=== PATIENT | male | born 1950 ===

== ENCOUNTER 2019-06-18 06:12 | Day surgery (SDC) | payer BC ==
[~2019-06-18] VITALS: Ht 188 cm; Wt 185.4 kg
[~2019-06-18 06:12] MED LIST: Flonase 0.05% N16 GM
[2019-06-18] MEDS ORDERED: ASPI325 PO (06:55)
== END 2019-06-18 08:05 | disposition home or self-care (01) ==
LOC: ORSCSDS 06:12
PROVIDERS: Ophthalmology
PROC: 08RK3JZ Replacement of Left Lens with Synthetic Substitute, Percutaneous Approach (ICD-10-PCS; principal; 2019-06-18 07:30)
DX: H25.12 Age-related nuclear cataract, left eye (principal); Z87.891 Personal history of nicotine dependence; Z79.82 Long term (current) use of aspirin
CPT/HCPCS: J2001; J2250; J3010; J3301; J7120; V2632

== ENCOUNTER → 2021-03-02 | Outpatient (CLI) | payer BC ==
[~2021-03-02] MED LIST changes: +ASPI325 PO
== END | disposition home or self-care (01) ==
LOC: LAB 12:54 → LAB SHORT 12:54
DX: C44.529 Squamous cell carcinoma of skin of other part of trunk (principal)
CPT/HCPCS: 88305

== ENCOUNTER → 2021-06-27 | Outpatient (CLI) | payer BC | LOC: LAB SHORT 11:53 → LAB 11:53 | DX: D48.5 Neoplasm of uncertain behavior of skin (principal); D04.5 Carcinoma in situ of skin of trunk | CPT/HCPCS: 88305 ==